=== PATIENT | male | born 1950 | race Caucasian/White ===

== ENCOUNTER 2017-05-26 12:52 | Day surgery (SDC) | payer MEDICARE, OTHER ==
[~2017-05-26] VITALS: Ht 175.3 cm; Wt 87.4 kg
[~2017-05-26 12:52] MED LIST: MULTIPLE VITAMI1 CAP PO
[2017-05-26 13:24] VITALS: BP 134/82; PULSE 59; TEMP 97.4
[2017-05-26] MEDS ORDERED: ZOCOR 20MG20 MG PO (13:30)
[2017-05-26 14:55] VITALS: BP 118/58; PULSE 58; TEMP 97.6
[2017-05-26 15:10] VITALS: BP 115/84; PULSE 55
[2017-05-26 17:51] VITALS: BP 116/73; PULSE 48
== END 2017-05-26 15:49 | disposition home or self-care (01) ==
LOC: SDCO 12:52
DX: Z12.11 Encounter for screening for malignant neoplasm of colon (principal); Z86.010 Personal history of colon polyps; K57.30 Diverticulosis of large intestine without perforation or abscess without bleeding; K63.5 Polyp of colon
CPT/HCPCS: OP; J2250; J3010; J7030